=== PATIENT | female | born 1990 | race Caucasian/White ===

== ENCOUNTER → 2020-01-05 07:50 | Outpatient (CLI) | payer OTHER, SELFPAY ==
--- NOTE | 2020-01-05 | DI.MRI.S_ITS ---
PROCEDURE: MR ABDOME PELVIS WWO CON INDICATIONS: Left lower quadrant abdominal swelling, mass and l TECHNIQUE: After the ingestion of oral contrast, coronal and axial HASTE, coronal 2-D FLASH in-and [id number] sequences. After the administration of contrast, coronal and axial VIBE or 2-D FLASH with fat saturation sequences acquired through the abdomen and pelvis. Optional diffusion weighted imaging and ADC may be performed. COMPARISON: None. FINDINGS: Image quality: Excellent. Bowel and peritoneum: The bowel demonstrates normal caliber and wall thickness. No wall thickening or perienteric fat stranding. The appendix is not visualized; however there is no discrete right lower quadrant fluid or fat stranding to suggest acute appendicitis. Trace free fluid in the pelvis is likely physiologic in a premenopausal female. Solid organs: Liver is normal in size and enhancement. Sludge is layered within the gallbladder fundus. No gallbladder wall thickening or pericholecystic fluid. Biliary system is non dilated, without findings to suggest primary sclerosing cholangitis. Pancreas is normal in morphology, without evidence for autoimmune pancreatitis. Spleen is normal in size and enhancement. No adrenal nodules. Both kidneys are normal in size and enhancement, without hydronephrosis. Nodes and vessels: No retroperitoneal or mesenteric adenopathy. Aorta and inferior vena cava are normal in size. Lung bases: No basal pleural effusions. Heart size is normal. Pelvis: No free pelvic fluid. Inferior bowel loops are normal in caliber. No inguinal hernias or adenopathy. The uterus and ovaries have a normal appearance. Bones and soft tissues: No ventral hernias. Bone marrow is normal in overall signal. No findings to suggest sacroiliitis. Femoral heads demonstrate no avascular necrosis. IMPRESSION: 1. Gallbladder sludge layered in the fundus. No findings to suggest acute cholecystitis or choledocholithiasis. 2. No acute intra-abdominal findings. The appendix is not visualized; however there are no ancillary findings to suggest acute appendicitis. 3. No discrete mass or other findings in the left lower quadrant to explain patient's symptoms. Dictated by: Prabha Kim M.D. on 01/05/2020 at 9:28 Approved by: Prabha Kim M.D. on 01/05/2020 at 9:37
== END ==
PROVIDERS: PCP Physician Assistant Medical; Referring Provider Physician Assistant Medical; Visit Provider Physician Assistant Medical
DX: R19.04 Left lower quadrant abdominal swelling, mass and lump (principal); K83.8 Other specified diseases of biliary tract
CPT/HCPCS: 72197